=== PATIENT | male | born 1975 | race Caucasian/White ===

== ENCOUNTER → 2018-01-02 | Outpatient (CLI) | payer BC ==
[~2018-01-02] MED LIST: AZIT250 PO; HYDHOMSY PO
== END | disposition home or self-care (01) ==
LOC: LAB SHORT 11:05 → PLD 11:05
DX: D31.01 Benign neoplasm of right conjunctiva (principal)
CPT/HCPCS: 88305

== ENCOUNTER 2018-09-21 13:49 | Day surgery (SDC) | payer OTHER ==
[~2018-09-21] VITALS: Ht 177.8 cm; Wt 98.8 kg
[2018-09-21] MEDS ORDERED: IBUP600 PO (14:25)
--- NOTE | 2018-09-21 14:28 | NUR ---
09/21/18 1428 Earl Boyer CALL LIGHT WITHIN REACH
== END 2018-09-21 16:25 | disposition home or self-care (01) ==
LOC: ORSCSDS 13:49
PROVIDERS: Orthopaedic Surgery
PROC: 01N54ZZ Release Median Nerve, Percutaneous Endoscopic Approach (ICD-10-PCS; principal; 2018-09-21 15:00)
DX: G56.01 Carpal tunnel syndrome, right upper limb (principal)
CPT/HCPCS: J0690; J2250; J7120

== ENCOUNTER → 2019-03-26 | Outpatient (CLI) | payer OTHER ==
[~2019-03-26] MED LIST changes: +IBUP600 PO
== END | disposition home or self-care (01) ==
LOC: PLD 14:00 → LAB SHORT 14:00
DX: D17.1 Benign lipomatous neoplasm of skin and subcutaneous tissue of trunk (principal)
CPT/HCPCS: 88304

== ENCOUNTER → 2019-10-29 | Outpatient (CLI) | payer OTHER | END | disposition home or self-care (01) | LOC: PLD 11:06 → LAB SHORT 11:06 | DX: B35.1 Tinea unguium (principal) | CPT/HCPCS: 88305; 88312 ==